=== PATIENT | male | born 1980 | race Hispanic/Latino ===

== ENCOUNTER 2016-12-21 13:17 | Day surgery (SDC) | payer OTHER ==
[2016-12-21 13:37] VITALS: BMI 21.7
--- NOTE | 2016-12-21 14:28 | CP.SDSHP ---
Same Day Surgery H & P - History Proposed Procedure: left heel wound debridement Pre-Op Diagnosis: left heel non-healing wound - Previous Medical/Surgical History Previous Surgical History: left foot wound debridement - Allergies Allergies: Allergies No Known Allergies Allergy (Verified 12/21/16 13:37) - Physical Exam Vital Signs: Vital Signs 12/21/16 12/21/16 13:57 13:59 Temperature 98.2 F Pulse Rate 91 H 91 H Respiratory 20 Rate Blood Pressure 106/57 L O2 Sat by Pulse 97 Oximetry Mental Status: Alert & Oriented x3 Neuro: WNL Heart: WNL Lungs: WNL GI: WNL - {Optional Preform as Required} Integument: Other (wound to left heel) Ortho: Other (foot drop to right foot) - Impression Impression: . Pt was seen and examined in [facility]. Pt NPO status was confirmed. All Pre-op testing and clearance was in the chart. Pt has exhausted all conservative treatment at this time and is opting for surgical intervention. Pt was explained procedure and post-operative course. All pt's questions were answered to satisfaction. No guarantees were made. Pt understands all risks, benefits and complications of procedure. Pt will follow-up with Dr. Billy Pt. Evaluated Today:Candidate for Anesthesia & Procedure: Yes - Date & Time Date: 12/21/16 Time: 14:27 Short Stay Discharge - Short Stay Discharge Admitting Diagnosis/Reason for Visit: L89.614 Disposition: HOME/ ROUTINE Referrals: Marzena Wells DO [Primary Care Provider] - Additional Instructions (Diet, Activity): -Patient in good condition for discharge home. Pt to resume medications per medical reconciliation. Resume regular diet. Please keep dressing clean, dry, & intact to surgical site, use plastic bag over bandage for showering, wear post op shoe at all times, call office if you see signs of infection (redness, swelling, malodor), please make an appointment to see Dr. Billy in office within 1 week for post-op check. Progress Note/Discharge Note with Instructions: - Patient evaluated bedside in SDS s/p surgical procedure. - After surgical procedure patient in NAD - (+) Void, (+) Appetite - Capillary refill time <3s and NVSI intact. - Patient denies complaints at this time - Post operative instructions and plan of care explained to patient at length. - Pt. acknowledges understanding. - Patient stable for DC per podiatric surgery
--- NOTE | 2016-12-21 14:28 | CP.PCM.PN ---
Subjective - Date & Time of Evaluation Date of Evaluation: 12/21/16 Time of Evaluation: 14:26 - Subjective Subjective: 36 year old male patient seen and evaluated at bedside in [facility] accompanied by his mother. Patient states that he has had a left foot heel open wound since June 2015. Left foot dressing intact, clean and dry. Patient to OR today for left heel wound debridement with graft application. Patient denies any symptoms of N/V/F/SOB today. Objective - Vital Signs/Intake and Output Vital Signs (last 24 hours): Temp Pulse Resp BP Pulse Ox 98.2 F 91 H 20 106/57 L 97 12/21/16 13:57 12/21/16 13:59 12/21/16 13:57 12/21/16 13:57 12/21/16 13:57 - Constitutional Appears: Non-toxic, No Acute Distress - Extremities Exam Additional comments: Left foot dressing intact, clean and dry. - Neurological Exam Neurological Exam: Alert, Awake, Oriented x3 - Psychiatric Exam Psychiatric exam: Depressed Assessment and Plan - Assessment and Plan (Free Text) Assessment: 36 year old male with left foot chronic wound Plan: Pt was seen and examined in [facility] Pt NPO status was confirmed All Pre-op testing and clearance was in the chart Pt has exhausted all conservative treatment at this time and is opting for surgical intervention Pt was explained procedure and post-operative course All pt's questions were answered to satisfaction No guarantees were made Pt understands all risks, benefits and complications of procedure Pt will follow-up with Dr. Billy
[2016-12-21] MEDS ORDERED: Bupivacaine 0.5% Inj(30mL) IJ ONE (14:31)
[2016-12-21] MEDS ORDERED: Lidocaine 1% Inj (20ml) IJ ONE (14:31)
[2016-12-21 14:59] LABS: BASO # 0.1 K/uL (0.0-0.2); EOS # 0.2 K/uL (0.0-0.7); EOS % 2.6 % (0.0-4.0); LYMPH # 3.2 K/uL (1.0-4.3); LYMPH % 34.7 % (20.0-40.0); MEAN CELL VOLUME 81.2 fl (80.0-94.0); MEAN CORPUSCULAR HEMOGLOBIN 26.6 pg (27.0-31.0); MEAN CORPUSCULAR HGB CONC 32.8 g/dL (33.0-37.0); MEAN PLATELET VOLUME 8.1 fl (7.2-11.7); MONO # 0.6 K/uL (0.0-0.8); MONO % 6.6 % (0.0-10.0); NEUT # 5.1 K/uL (1.8-7.0); NEUT % 55.1 % (50.0-75.0); NRBC % 0.2 % (0.0-0.0); RED CELL DISTRIBUTION WIDTH 13.4 % (11.5-14.5); WHITE BLOOD COUNT 9.2 K/uL (4.8-10.8)
[2016-12-21 15:02] LABS: BLOOD UREA NITROGEN 16 mg/dl (9-20); CALCIUM 9.2 mg/dL (8.4-10.2); CARBON DIOXIDE 24 mmol/L (22-30); CHLORIDE 106 mmol/L (98-107); GFR AFRICAN-AMERICAN > 60; GLUCOSE,RANDOM 83 mg/dL (75-110); POTASSIUM 3.9 MMOL/L (3.6-5.0); SODIUM 144 mmol/l (132-148)
[2016-12-21] MEDS ORDERED: Lidocaine 1% Inj (20ml) ONE (15:47)
[2016-12-21] MEDS ORDERED: Bupivacaine 0.5% Inj(30mL) ONE (15:48)
[2016-12-21] MEDS ORDERED: Sodium Chloride 0.9% 20 ML IV ONE (16:12)
[2016-12-21] MEDS ORDERED: Propofol 10 mg/ml Inj (20 ML) ONE (16:15)
[2016-12-21] MEDS ORDERED: Midazolam 2 MG/2 ML VIAL ONE (16:15)
[2016-12-21] MEDS ORDERED: Lactated Ringer's 1,000 ML IV ONE ×2 (16:24)
[2016-12-21] MEDS ORDERED: Sodium Chloride 0.9% 100 ML IV ONE ×2 (16:39)
--- NOTE | 2016-12-21 17:18 | PCM.SURG1 ---
Surgeon's Initial Post Op Note - Surgeon's Notes Surgeon: Dr. Burns Striping Machine Operator: Dr. Taurus Lawson Type of Anesthesia: General LMA, Local Anesthesia Administered By: Dr. Arellano Pre-Operative Diagnosis: Left foot non-healing ulceration Operative Findings: Materials: Epifix Amnionic disk graft, Epifix Amnionic graft injection, 2-0 Prolene Post-Operative Diagnosis: same Operation Performed: Left heel wound debridement with Misonix, Amnionic graft disk aplication, Amnionic graft injection Specimen/Specimens Removed: none Estimated Blood Loss: EBL {In ML}: 3 Blood Products Given: N/A Drains Used: No Drains Post-Op Condition: Good Date of Surgery/Procedure: 12/21/16 Time of Surgery/Procedure: 04:10
[2016-12-21] MEDS ORDERED: Oxycodone/Acetaminophen 5/325 mg Tab PO PRN ×2 (17:19)
[2016-12-21] MEDS ORDERED: HYDROmorphone 0.5 mg/0.5 ml ISec ONE (17:21)
[2016-12-21] MEDS ORDERED: Lactated Ringer's 1,000 ML IV SCH (17:41)
[2016-12-21] MEDS ORDERED: HYDROmorphone 0.5 mg/0.5 ml ISec IVP PRN (17:41)
[2016-12-21 18:34] VITALS: O2SAT 99
[2016-12-21 19:13] VITALS: BP 120/70; PULSE 86; RESP 18; TEMP 98
--- NOTE | 2016-12-21 20:26 | OP ---
PROCEDURE DATE: 12/21/2016 SURGEON: Dr. Burns. COSTUME DIRECTOR: Dr. Shanti Lawson. SCIENCE CONSULTANT: Dr. Arellano. ANESTHESIA: General LMA and local. PREOPERATIVE DIAGNOSES: Left foot heel nonhealing ulceration with infection. POSTOPERATIVE DIAGNOSES: Left foot heel nonhealing ulceration with infection. PROCEDURE PERFORMED: 1. Left foot heel debridement of nonviable tissue with Misonix. 2. Amniotic graft application. 3. Amniotic graft injection. INDICATIONS: The patient is a 36-year-old male with the above diagnosis. The patient has exhausted all conservative treatment at this time and now requests surgical intervention. The patient signs th e consent after careful explanation of risks, benefits, complication and alternatives for surgical pr ocedure. No guarantees were given nor implied. N.p.o. status was confirmed prior to taking patient to the OR. PREPARATION: The patient was brought into the operating room and placed on the operating room table in a supine position. Time-out was performed for identification of the correct patient and procedure . After induction of IV sedation, the left lower extremity was then prepped and draped in normal miquel rile manner and the procedure began. No tourniquet was used during the procedure. PROCEDURE #1: Left foot heel debridement of nonviable tissue with Misonix. DESCRIPTION OF PROCEDURE: Attention was then directed to the plantar aspect of the left lower extrem ity heel where open ulceration is located. Misonix handpiece was inserted into the open wound and al l visible nonviable soft tissue was mechanically debrided. After all the nonviable soft tissue was a dequately excised and debrided, healthy bleeding was noted from the area of the debridement. Normal sterile saline was used to irrigate the area of the debridement. Next, attention was then directed t o the posterior aspect of the left lower extremity heel where another open ulceration is noted. Miso nix handpiece was then inserted into the open wound and all visible nonviable soft tissue was mechani merrill debrided. After all nonviable soft tissue was adequately excised and debrided, healthy bleedin g was noted from the area of the debridement. Normal sterile saline was used to irrigate the area of the debridement. PROCEDURE #2: Amniotic graft application. DESCRIPTION OF PROCEDURE: Attention was directed to the plantar aspect of the left heel where an ope n wound was noted. An EpiFix Amniotic graft disk sheet was inserted into the wound opening. Then th e skin was reapproximated with #2-0 Prolene in a simple suture technique. PROCEDURE #3: Amniotic graft injection. DESCRIPTION OF PROCEDURE: Attention was then directed to the plantar aspect of the left heel where r eapproximated skin was noted. An EpiFix Amniotic graft mixed with a sterile normal saline was inject ed into the wound. The posterior aspect of the left heel was left open for drainage. The left foot was then dressed with Xeroform, 4 x 4, ABD and Kerlix. The attending was present during the entire c ase. POSTOPERATIVE CONDITION: The patient tolerated the anesthesia and procedure well and was escorted to the recovery room with vital signs stable and neurovascular status intact to the left foot. The pat ient will follow up with Dr. Burns SHANTI LAWSON DPM Christian Burns DPM cc: [id number] TT: 12/21/2016 20:26:29 dn
== END 2016-12-21 18:45 | disposition home or self-care (01) ==
LOC: H.OPSURG 13:17
PROVIDERS: ATTEND Podiatrist Foot & Ankle Surgery
DX: L89.614 Pressure ulcer of right heel, stage 4 (principal)

== ENCOUNTER 2017-09-20 06:17 | Day surgery (SDC) | payer OTHER ==
[2017-09-14 09:32] VITALS: BMI 19.9
--- NOTE | 2017-09-20 07:19 | CP.SDSHP ---
Same Day Surgery H & P - History Proposed Procedure: Debridement w/ application of graft Pre-Op Diagnosis: Chronic foot wound - Allergies Allergies: Allergies No Known Allergies Allergy (Verified 09/20/17 06:29) - Physical Exam Vital Signs: Vital Signs 09/20/17 09/20/17 06:58 07:07 Temperature 98.6 F Pulse Rate 94 H 94 H Respiratory 18 Rate Blood Pressure 123/77 O2 Sat by Pulse 99 Oximetry - {Optional Preform as Required} Integument: Other - Date & Time Date: 09/20/17 Time: 07:19 Short Stay Discharge - Short Stay Discharge Admitting Diagnosis/Reason for Visit: L97.512/ L97.412/ Disposition: HOME/ ROUTINE Referrals: Marzena Wells DO [Primary Care Provider] - Additional Instructions (Diet, Activity): -Patient in good/stable condition for discharge home -Pt to resume medications per medical reconciliation -Resume regular diet Please keep dressing clean, dry, & intact to surgical site -Use plastic bag over bandage for showering -Wear post op shoe at all times when ambulating -Call clinic if you see signs of infection (redness, swelling, malodor) -Please make an appointment to see Dr. Burns in office/clinic within 1 week for post-op check Progress Note/Discharge Note with Instructions: - Patient evaluated bedside in recovery s/p surgical procedure. - After surgical procedure patient in NAD - (+) Void, (+) Appetite - Capillary refill time <3s and NVSI intact. - Patient denies complaints at this time - Post operative instructions and plan of care explained to patient at length. - Pt. acknowledges understanding. - Patient stable for DC per podiatric surgery
--- NOTE | 2017-09-20 07:22 | CP.PCM.PN ---
Subjective - Date & Time of Evaluation Date of Evaluation: 09/20/17 Time of Evaluation: 07:19 - Subjective Subjective: Progress note - Dr. Billy 36 year old male patient seen and evaluated at bedside in [facility] accompanied by his mother. Patient's mother confirms that he is here for left foot wound debridement. Patient's mother reports that he had a sip of black coffee this morning. Patient denies of any recent F/N/V/C/SOB/CP/headache. Denies of any new pedal complains today. PMHx: Denies PSHx: Spinal surgery, multiple foot surgery Allergies: N.K.D.A SHx: Denies smoking, EtOH or illicit drug usage Objective - Vital Signs/Intake and Output Vital Signs (last 24 hours): Temp Pulse Resp BP Pulse Ox 98.6 F 94 H 18 123/77 99 09/20/17 06:58 09/20/17 07:07 09/20/17 06:58 09/20/17 06:58 09/20/17 06:58 - Constitutional Appears: Well, Non-toxic, No Acute Distress - Extremities Exam Additional comments: Dressing is clean, dry and intact and patient has a surgical shoe on the left foot - Neurological Exam Neurological Exam: Alert, Awake, Oriented x3 - Psychiatric Exam Psychiatric exam: Depressed Assessment and Plan - Assessment and Plan (Free Text) Assessment: 36 year old male with left foot chronic wound Plan: Pt was seen and examined in [facility] Pt NPO status was confirmed All Pre-op testing and clearance was in the chart Pt has exhausted all conservative treatment at this time and is opting for surgical intervention Pt was explained procedure and post-operative course All pt's questions were answered to satisfaction No guarantees were made Pt understands all risks, benefits and complications of procedure Pt will follow-up with Dr. Billy
[2017-09-20] MEDS ORDERED: Bupivacaine 0.5% Inj(30mL) IJ ONE (07:23)
[2017-09-20] MEDS ORDERED: Lidocaine 1% Inj (20ml) IJ ONE (07:23)
[2017-09-20] MEDS ORDERED: Lidocaine 1% Inj (20ml) ONE (07:25)
[2017-09-20] MEDS ORDERED: Bupivacaine 0.5% Inj(30mL) ONE (07:25)
[2017-09-20] MEDS ORDERED: Sodium Chloride 0.9% 1,000 ML IV SCH (07:30)
[2017-09-20] MEDS ORDERED: Midazolam 2 MG/2 ML VIAL ONE (07:47)
[2017-09-20] MEDS ORDERED: Propofol 10 mg/ml Inj (20 ML) ONE (07:47)
[2017-09-20] MEDS ORDERED: Lactated Ringer's 1,000 ML IV ONE (07:55)
[2017-09-20] MEDS ORDERED: ceFAZolin 2 GM in Sodium Chloride 0.9% 100 ML IVPB ONE (08:00)
[2017-09-20] MEDS ORDERED: Oxycodone/Acetaminophen 5/325 mg Tab PO PRN ×2 (08:50)
[2017-09-20] MEDS ORDERED: Lactated Ringer's 1,000 ML IV SCH (08:50)
[2017-09-20] MEDS ORDERED: HYDROmorphone 0.5 mg/0.5 ml ISec ONE (08:52)
[2017-09-20] MEDS: HYDROmorphone 0.5 mg/0.5 ml ISec IVP PRN ×2 (08:55→09:25)
--- NOTE | 2017-09-20 08:56 | PCM.SURG1 ---
Surgeon's Initial Post Op Note - Surgeon's Notes Surgeon: Dr. Billy Cross Country Coach: Dr. Pritesh Morales, Dr. Olivares Type of Anesthesia: Local Anesthesia Administered By: Dr. Truong Pre-Operative Diagnosis: chronic left foot wounds Operative Findings: see dication; materials: 3-0 vicryl preop injectables: 20 cc of 1:1 1% lidocaine plain and .5% marcaine plain; intraop injectables: 7 cc of 1:1 1% lidocaine plain and .5% marcaine plain; integra injectables Post-Operative Diagnosis: same Operation Performed: debridment of left chronic wounds with application of graft Specimen/Specimens Removed: none Estimated Blood Loss: EBL {In ML}: 5 Blood Products Given: N/A Drains Used: No Drains Post-Op Condition: Good Date of Surgery/Procedure: 09/20/17 Time of Surgery/Procedure: 07:45
[2017-09-20 09:45] VITALS: RESP 20
[2017-09-20 10:34] VITALS: BP 118/79; PULSE 85; TEMP 97.3; O2SAT 99
--- NOTE | 2017-09-21 09:39 | OP ---
PROCEDURE DATE: 09/20/2017 SURGEON: Christian Manzo DPM ASSISTANTS: 1. Abhi Morales, PGY-1 2. Maria Guadalupe Olivares DPM, PGY-1 ANESTHESIA ADMINISTERED BY: Baudilio Truong MD ANESTHESIA: IV sedation with local. PREOPERATIVE DIAGNOSIS: Chronic nonhealing wound of the left foot. POSTOPERATIVE DIAGNOSIS: Chronic nonhealing wound of the left foot. NAME OF THE PROCEDURE: Left lower extremity wound debridement with Misonix and application of graft material. INDICATION: The patient is a 36-year-old male with the above diagnosis. The patient has exhausted all conservative treatment at this time and now requires surgical intervention. The patient signed the consent after careful explanation of risks, benefits, complications, and alternatives of surgical procedure. No guarantees were given or implied. N.p.o. status was confirmed prior to taking the patient to the OR. PREPARATION: The patient was brought into the operating room table and placed on the operating room table in the supine position. The time-out was performed for identification of the correct patient and the procedure. After induction of IV sedation, the left lower extremity was then prepped and draped in normal sterile manner and then procedure began. No tourniquet was used during the procedure. Approximately 20 mL of 1:1 1% lidocaine plain to 0.5% Marcaine plain was given in the local ankle block fashion prior to beginning the procedure. DESCRIPTION OF PROCEDURE: Attention was then directed to the posterior and plantar aspect of the left heel where two pockets of abscess were noted. Using a small hemostat, an entry point was created in the wound and approximately 2 mL of sanguinous fluid was expressed. 7 mL of 1% lidocaine plain was then injected proximal to the surgical site. At this time, a Misonix head piece was introduced from the entry point to debride the wound. Once the wound was cleaned of all the vitalized tissue and all the debris were removed, injectable 4 mL of Integra graft was introduced to the wound from the posterior heel and plantar heel. At this time, incision site on the posterior and plantar heel was sutured close using 3-0 Prolene and 4-0 Prolene. Surgical site was clean using wet-to-dry sponge and dressing was applied using Xeroform 4 x 4, Kerlix, and Med bandage. POSTOPERATIVE CONDITION: The patient tolerated the anesthesia and procedure well and was escorted to the recovery room with vital signs stable and neurovascular status intact to the left foot. All the instructions were given to the patient preoperatively. The patient and his family demonstrated verbal understanding of the postoperative course. The patient will follow up with Dr. Manzo in his office. Abhi Morales DPM Christian Manzo DPM ANNETTA
== END 2017-09-20 11:00 | disposition home or self-care (01) ==
LOC: H.OPSURG 06:17
PROVIDERS: ATTEND Podiatrist Foot & Ankle Surgery
DX: L97.512 Non-pressure chronic ulcer of other part of right foot with fat layer exposed (principal); L97.412 Non-pressure chronic ulcer of right heel and midfoot with fat layer exposed
CPT/HCPCS: 15271; 87070; J0690; J1170; J2001; J2250; J2704; J3010; J7030; J7040; J7120; Q4114